=== PATIENT | male | born 1970 | race Caucasian/White ===

== ENCOUNTER 2019-02-03 14:02 | Inpatient (IN) | payer SELFPAY ==
[2019-02-03] MEDS ORDERED: Fentanyl 100 MCG/2 ML VIAL ONE ×2 (14:23→20:49)
--- NOTE | 2019-02-03 16:01 | HP ---
HISTORY OF PRESENT ILLNESS: Mr. Rahman is a 48-year-old man, presented to the emergency department with complaint of insidious onset periumbilical abdominal pain, which started approximately 1300 hours yesterday. Pain is described as crampy and intermittent in nature. Has become more progressive and now started in the right lower quadrant. Pain is associated with multiple episodes of nausea and nonbilious emesis. The patient now admits to some chills, which is new. He denies any fever nevertheless. He denies any diarrhea. PAST MEDICAL HISTORY: Significant for anxiety/depression. PAST SURGICAL HISTORY: Notable for surgery to the left hand. He does not recall specifics. SOCIAL HISTORY: He admits to smoking one pack of cigarettes per day and has done for about 20 years. He smokes marijuana daily. He denies any other illicit drug abuse. He used to drink alcohol heavily, but has not indulged in the last year and half. FAMILY HISTORY: Notable for heart disease in a paternal grandfather and various family members with essential hypertension. He denies any family history of diabetes mellitus and cancer. PRE-HOSPITAL MEDICATIONS: Include, 1. Prozac 20 mg p.o. daily. 2. Clonazepam 0.5 mg p.o. daily. 3. Gabapentin 600 mg p.o. daily. ALLERGIES: IODINE. REVIEW OF SYSTEMS: Ten-point review of systems essentially unremarkable except as stated in past medical history and chief complaint. PHYSICAL EXAMINATION: GENERAL: A 48-year-old normally developed man, who is otherwise coherent and interactive and appears stated age. The patient is alert and oriented x3. Appears to be in moderate acute distress secondary to severe abdominal pain. VITAL SIGNS: Blood pressure 145/93, pulse is 73, respiratory rate is 18, oxygen saturation is 99% on room air. HEENT: Normocephalic and atraumatic. Pupils are equal, round, reactive to light and accommodation. Extraocular muscles are intact bilaterally. He has no scleral icterus present. HEART: Regular rate and rhythm. No murmurs or gallops auscultated. LUNGS: Clear to auscultation bilaterally. Breathing, regular and nonlabored. ABDOMEN: Soft with right lower quadrant tenderness to palpation. He has a positive Rovsing sign. Liver and spleen otherwise nonpalpable below costal margins. EXTREMITIES: 2+ radial and pedal pulses bilaterally. No ankle edema is present. NEUROLOGIC: No focal deficits present. LABORATORY FINDINGS: Today include a CBC with 17,900 white blood cells, hemoglobin and hematocrit 14.3 and 41.1 respectively, and platelet count is 354,000. Metabolic profile; sodium 139, potassium is 3.8, chloride is 103, bicarb is 24, BUN 17, creatinine is 1.0, glucose 100, lactic acid is 1.3, total bilirubin 0.5, AST and ALT are 16 and 20 respectively. Serum lipase is normal at 35 units/L. I have personally reviewed the CT scan of the abdomen and pelvis, which is remarkable for dilated appendix with periappendiceal fat stranding. I do not see any free fluid or pneumoperitoneum present. IMPRESSION: Acute appendicitis. PLAN: Laparoscopic appendectomy. I have advised the patient of the above findings and recommendations. I have also informed him of the risks and benefits of the proposed surgery to include, but not limited to, bleeding, infection, injury to bowel or surrounding structures. This information was given to the patient in the presence of his nurse. The patient is indicated understanding information provided. I have answered his questions. The patient has granted consent for this admission and surgical intervention. Job ID: [id number]
[2019-02-03] MEDS ORDERED: Morphine 4 MG/ML VIAL ONE (16:51)
[2019-02-03] MEDS ORDERED: HYDROmorphone 0.5 MG/0.5 ML SYRINGE ONE (16:55)
[2019-02-03] MEDS ORDERED: Ondansetron PF 4 MG/2 ML Vial ONE ×2 (17:03→21:00)
[2019-02-03] MEDS ORDERED: Midazolam HCl 2 mg/2 ml Vial ONE (18:26)
[2019-02-03] MEDS ORDERED: Succinylcholine Chloride 20 MG/ML 10 ml SYRINGE FS ONE (21:00)
[2019-02-03] MEDS ORDERED: Dexamethasone 20 MG/5 ML VIAL ONE (21:00)
[2019-02-03] MEDS ORDERED: Rocuronium Bromide 10 MG/ML (10ML VIAL) ONE (21:00)
[2019-02-03] MEDS ORDERED: PROPOFOL 200 MG/20 ML VIAL ONE (21:00)
[2019-02-03] MEDS ORDERED: diphenhydrAMINE 50 MG/ML VIAL ONE (21:00)
[2019-02-03] MEDS ORDERED: Glycopyrrolate 0.2 MG/ML 5 ML SYRINGE ONE (21:00)
[2019-02-03] MEDS ORDERED: Ketorolac Tromethamine 30 MG/ML VIAL ONE (21:00)
[2019-02-03] MEDS ORDERED: Ondansetron PF 4 MG/2 ML Vial IVP PRN (21:23)
[2019-02-03] MEDS ORDERED: Promethazine HCl 25 MG/ML VIAL IM PRN ×2 (21:23→21:35)
[2019-02-03] MEDS ORDERED: HYDROcodone/Acetaminophen 10/325 mg Tablet PO PRN ×2 (21:23)
[2019-02-03] MEDS ORDERED: Dextrose 5% in Water 1,000 ML IV PRN (21:23)
[2019-02-03] MEDS ORDERED: Morphine 4 MG/ML VIAL SLOW IVP PRN (21:23)
[2019-02-03] MEDS ORDERED: hydrALAZINE 20 MG/ML VIAL SLOW IVP PRN (21:23)
[2019-02-03] MEDS ORDERED: Dextrose 50% Abboject 50 ML SYRINGE SLOW IVP PRN (21:23)
[2019-02-03] MEDS ORDERED: Morphine 2 MG/ML SYRINGE SLOW IVP PRN (21:23)
[2019-02-03] MEDS ORDERED: Meperidine HCl/PF 25 MG/ML VIAL SLOW IVP PRN (21:35)
[2019-02-03] MEDS ORDERED: Ondansetron HCl/PF 4 MG/2 ML Vial IVP PRN (21:35)
[2019-02-03 23:29] VITALS: BMI 27.8
[2019-02-03] MEDS: Piperacillin/Tazobactam 3.375 GM in Sodium Chloride 0.9% 100 ML IVPB SCH (23:56)
[2019-02-03] MEDS: Ketorolac Tromethamine 30 MG/ML VIAL IVP SCH (23:57)
[2019-02-03] MEDS: D5 1/2 NS w/20 mEq KCL 1,000 ML IV SCH (23:57)
[2019-02-04] MEDS ORDERED: Temazepam 15 MG CAP PO PRN (01:05)
--- NOTE | 2019-02-04 02:11 | OP ---
DATE OF PROCEDURE: 02/03/2019 PREOPERATIVE DIAGNOSIS: Acute appendicitis. PROCEDURE PERFORMED: Laparoscopic appendectomy. INDICATIONS: A 48-year-old male who presented with 36-hour history of abdominal pain. CT scan showing appendicitis. FINDINGS: Acute gangrenous appendicitis with local perforation. DESCRIPTION OF PROCEDURE: After informed consent was obtained, the patient was taken to the operating room, given general endotracheal anesthesia, placed in supine position. Abdomen was prepped and draped in usual fashion. Local anesthesia infiltrated subcutaneously and deep subumbilical incision was performed. Subcu divided sharply. The fascia was grasped, two stay sutures of 0 Vicryl placed in either side of midline. Midline incised, digital palpation revealed no local adhesions. A blunt 12 mm trocar inserted. Pneumoperitoneum was created to a pressure of 15 mmHg. Under direct vision, two 5 mm ports were placed, one suprapubic, one right lateral abdomen. The appendix was gangrenous. The mesoappendix was divided utilizing the LigaSure. However, in grasping the appendix, it ruptured before my eyes came out. The appendix was gangrenous all the way down to the cecum. A linear 45 mm white load stapler used to divide the cecum at the appendix with a healthy staple line. The appendix placed in endosac, removed from the abdomen through the umbilical port in the endosac. Peritoneal fluid was sent for culture. The abdomen thoroughly irrigated. Irrigation fluid removed. Trocars and retractors removed. The fascia closed with interrupted 0 Vicryl suture. The skin closed with interrupted 4-0 Rapide. Dermabond applied. The patient tolerated the procedure well and transferred to Recovery in good condition. Sponge and needle count verified and correct x2. Job ID: [id number]
[2019-02-04 04:35] LABS: Anion Gap 14 mmol/L (10-20); BUN (Urea Nitrogen) 14 mg/dL (8.9-20.6); Calc. Creatinine Clearance 123 mL/min (70-130); Calcium 8.9 mg/dL (7.8-10.44); Carbon Dioxide 22 mmol/L (22-29); Chloride 102 mmol/L (98-107); Estimated GFR-MDRD 82; Glucose 140 mg/dL (70-105); Potassium 4.2 mmol/L (3.5-5.1); Sodium 134 mmol/L (136-145)
[2019-02-04 04:40] LABS: Band 4 % (5-11); Hemoglobin 12.8 g/dL (14.0-18.0); Hypochromia SLIGHT = 6-15 cells (100X) (0-5/hpf); Lymphocytes 2 % (21-51); MDiff Complete? YES; Mean Corpuscular HGB CONC 33.4 g/dL (32.0-36.0); Mean Corpuscular Hemoglobin 29.7 pg (27.0-31.0); Mean Corpuscular Volume 89.1 fL (78.0-98.0); Mean Platelet Volume 7.2 fL (7.4-10.4); Monocytes 3 % (0-10); Neutrophil 91 % (42-75); Platelet Count 314 thou/uL (130-400); Platelet Morphology Comment Appears Adequate; RBC Distribution Width 12.3 % (11.5-14.5); White Blood Cell (WBC) Count 29.8 thou/uL (4.8-10.8)
[2019-02-04] MEDS: Ketorolac Tromethamine 30 MG/ML VIAL IVP SCH ×2 (05:39→11:29)
[2019-02-04] MEDS: Piperacillin/Tazobactam 3.375 GM in Sodium Chloride 0.9% 100 ML IVPB SCH ×2 (05:39→11:29)
[2019-02-04] MEDS: D5 1/2 NS w/20 mEq KCL 1,000 ML IV SCH (06:24)
[2019-02-04] MEDS ORDERED: Famotidine 20 MG TAB PO SCH (09:00)
[2019-02-04] MEDS ORDERED: Famotidine/PF 20 mg/2ml Vial SLOW IVP SCH (09:00)
[2019-02-04] MEDS ORDERED: Enoxaparin Sodium 40 MG/0.4 ML SYRINGE SC SCH (09:00)
[2019-02-04] MEDS ORDERED: FLUoxetine HCl 20 MG CAP PO SCH (09:45)
[2019-02-04] MEDS ORDERED: Gabapentin 300 MG CAP PO SCH (09:45)
[2019-02-04 12:23] VITALS: BP 146/67; TEMP 98.1
--- NOTE | 2019-02-04 13:09 | PDOC.GSPN ---
Surgery Progress Note: Subj - Subjective Patient reports: no new complaints Surgery Progress Note: Obj - Vital signs Vital signs: Vital Signs - Most Recent Temp Pulse Resp BP Pulse Ox 98.1 F 78 14 146/67 H 97 02/04/19 12:00 02/04/19 12:00 02/04/19 12:00 02/04/19 12:00 02/04/19 12:00 - Physical Exam General: no distress Abdomen: soft, non tender Wound: healing well Surgery Progress Note: Results - Labs Result Diagrams: 02/04/19 03:58 02/04/19 03:58 Lab results: Laboratory Results - last 24 hr 02/04/19 02/04/19 03:58 03:58 WBC 29.8 H RBC 4.30 L Hgb 12.8 L Hct 38.3 L MCV 89.1 MCH 29.7 MCHC 33.4 RDW 12.3 Plt Count 314 MPV 7.2 L Neutrophils % (Manual) 91 H Band Neuts % (Manual) 4 L Lymphocytes % (Manual) 2 L Monocytes % (Manual) 3 Hypochromia SLIGHT = 6-15 cells Plt Morphology Comment Appears Adequate Sodium 134 L Potassium 4.2 Chloride 102 Carbon Dioxide 22 Anion Gap 14 BUN 14 Creatinine 0.97 Estimated GFR (MDRD) 82 Glucose 140 H Calcium 8.9 Surgery Progress Note: A/P - Problem (1) Appendicitis Current Visit: Yes Code(s): K37 - UNSPECIFIED APPENDICITIS Status: Acute - Plan Plan: Doing well pod 1 -DC -stable - -staff angel
[2019-02-05] MEDS ORDERED: Gabapentin 300 MG CAP PO SCH (09:00)
[2019-02-05] MEDS ORDERED: FLUoxetine HCl 20 MG CAP PO SCH (09:00)
--- NOTE | 2019-02-06 05:12 | PQF ---
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 Clinical indicators are provided on the bottom of this form for your review Please check appropriate box(s): [ x] Hyponatremia please specify etiology, if known [ ] Hyponatremia due to SIADH (Syndrome of Inappropriate Secretion of Antidiuretic Hormone) [ ] Other diagnosis [ ] Unable to determine CLINICAL INDICATORS - SIGNS / SYMPTOMS / LABS multiple episode of nausea and nonbilious emesis - Documented in H&P on by PENG RODRIGUEZ Sodium 139 on 02/03 - Documented in H&P on 02/03/19 by PENG RODRIGUEZ Sodium 134 on 02/04 - Documented in Laboratory result RISK FACTORS Acute appendicitis - Documented in H&P on 02/03/19 by PENG RODRIGUEZ TREATMENTS: Sodium chloride 0.9% 10ml IVF - Documented in Medication (This form is maintained as a part of the permanent medical record) 2014 [email or web address] All Rights Reserved [email or web address] [not provided] MTDD
== END 2019-02-04 14:05 | disposition home or self-care (01) | DRG 339 ==
LOC: ERS 14:02 → SDC/OP 20:26 → SJJU 21:23
PROVIDERS: ADMIT Surgery; ATTEND Surgery
PROC: 0DTJ4ZZ Resection of Appendix, Percutaneous Endoscopic Approach (ICD-10-PCS; principal; 2019-02-03)
DX: K35.32 Acute appendicitis with perforation, localized peritonitis, and gangrene, without abscess (principal); E87.1 Hypo-osmolality and hyponatremia; F31.9 Bipolar disorder, unspecified; F41.9 Anxiety disorder, unspecified; F17.210 Nicotine dependence, cigarettes, uncomplicated; Z79.899 Other long term (current) drug therapy; Z91.041 Radiographic dye allergy status; Z91.018 Allergy to other foods
CPT/HCPCS: 36415; 80048; 85025; 87070; 87205; 88304; 96361; 96374; 96375; J1100; J1170; J1200; J1650; J1885; J2250; J2270; J2405; J2543; J2704; J3010; J3490